=== PATIENT | male | born 1955 | race Two or more races ===

== ENCOUNTER 2019-10-06 07:56 | Outpatient (CLI) | payer OTHER | END 2019-10-06 08:09 | disposition home or self-care (01) | LOC: TOM 07:56 | DX: K56.699 Other intestinal obstruction unspecified as to partial versus complete obstruction (principal) ==

== ENCOUNTER → 2020-05-31 | Outpatient (CLI) | payer OTHER | END | disposition home or self-care (01) | LOC: RX STUDY 08:40 | PROVIDERS: ATTEND Internal Medicine Gastroenterology | DX: R10.13 Epigastric pain (principal) ==